=== PATIENT | female | born 1945 | race Caucasian/White ===

== ENCOUNTER → 2017-10-27 02:33 | Outpatient (CLI) | payer MEDICARE, MEDICAID, SELFPAY ==
--- NOTE | 2017-10-27 13:10 | DI.REPORT_ITS ---
SYMPTOMS/DIAGNOSIS: SHORTNESS OF BREATH, R06.02 CHEST X-RAY, AP AND LATERAL: Comparisons are 03/29/17 and 09/10/17. The heart size and pulmonary vasculature are within normal limits. No focal consolidating infiltrates, effusions or pneumothoraces are identified. The bones appear intact. There are again seen chronic reticulonodular infiltrates predominantly involving the right upper lobe. IMPRESSION: No acute pulmonary process.
== END ==
PROVIDERS: PCP Emergency Medicine; Visit Provider Emergency Medicine
DX: R06.02 Shortness of breath (principal)
CPT/HCPCS: 71046

== ENCOUNTER 2017-10-30 02:52 | Outpatient (CLI) | payer MEDICARE, MEDICAID, SELFPAY ==
--- NOTE | 2017-10-30 13:30 | PFT_ITS ---
INTERPRETATION SPIROMETRY: Spirometry shows moderately severe obstructive airways disease with significant bronchodilator response. LUNG VOLUMES: Lung volumes show moderate restriction. DIFFUSION CAPACITY: Mildly reduced which is normal when corrected to alveolar volume. AIRWAY RESISTANCE: Elevated. IMPRESSION: Combination of moderately severe obstructive airways disease with significant bronchodilator response and moderately severe restriction. Clinical correlation recommended. When this study was compared to previous one from 07/31/06, the patient has a total of 420 cc. decline in FVC, FEV-1 has declined by 290 cc. The restrictive pattern seen on this study may be related to respiratory neuromuscular weakness, as such, proceeding with MVV, MIP and MEP maneuvers may prove to be useful in evaluation for that. HAND SIGNED COPY OF THIS NOTE IS SCANNED INTO THE EMR
[2017-10-30] MEDS: Albuterol HFA 18 GM 200 PUFF INH IH (14:19)
[2017-10-30] MEDS: Inhaler, Assist Device 1 EACH MC (14:19)
== END 2017-10-30 02:53 ==
PROVIDERS: PCP Emergency Medicine; Visit Provider Emergency Medicine
DX: R06.02 Shortness of breath (principal); J98.8 Other specified respiratory disorders
CPT/HCPCS: 94060; 94150; 94726; 94729

== ENCOUNTER 2017-11-13 09:09 | Outpatient (REF) | payer MEDICARE, MEDICAID, SELFPAY ==
[2017-11-13 11:05] LABS: Bilirubin Negative (Negative); Blood Trace-lysed (Negative); Clarity Cloudy; Glucose Negative (Negative); Ketones Negative (Negative); Leukocyte Esterase Moderate (Negative); Nitrite Positive (Negative); Urobilinogen 0.2 EU/dL (Up TO 0.2); pH >= 9.0 (5-8)
[2017-11-13 11:18] LABS: Bacteria Packed HPF (Negative)
[2017-11-13 11:19] LABS: C & S Indicated? Yes; Crystals Moderate Triple Phos HPF (Negative)
== END 2017-11-13 09:29 ==
LOC: LBN 09:09
PROVIDERS: PCP Emergency Medicine; Visit Provider Emergency Medicine
DX: N39.0 Urinary tract infection, site not specified (principal); T83.511A Infection and inflammatory reaction due to indwelling urethral catheter, initial encounter
CPT/HCPCS: 81003; 81015; 87086

== ENCOUNTER 2017-11-27 13:38 | Outpatient (REF) | payer MEDICARE, MEDICAID, SELFPAY ==
[2017-11-27 15:31] LABS: Bilirubin Negative (Negative); Blood Moderate (Negative); Clarity Sl Cloudy; Glucose Negative (Negative); Ketones Negative (Negative); Leukocyte Esterase Moderate (Negative); Nitrite Positive (Negative); Urobilinogen 0.2 EU/dL (Up TO 0.2)
[2017-11-27 15:42] LABS: Bacteria Moderate HPF (Negative); Epithelial Cells Rare HPF (Negative)
[2017-11-27 15:43] LABS: C & S Indicated? Yes; Crystals Moderate Amorphous HPF (Negative); Mucus Trace (Negative)
== END 2017-11-27 13:58 ==
LOC: NCHCN 13:38
PROVIDERS: PCP Emergency Medicine; Visit Provider Emergency Medicine
DX: N39.0 Urinary tract infection, site not specified (principal)
CPT/HCPCS: 87077; 81003; 81015; 87086; 87186

== ENCOUNTER 2017-12-14 12:20 | Outpatient (REF) | payer MEDICARE, MEDICAID, SELFPAY ==
[2017-12-14 12:39] LABS: Bilirubin Negative (Negative); Blood Large (Negative); Clarity Sl Cloudy; Glucose Negative (Negative); Ketones Negative (Negative); Leukocyte Esterase Small (Negative); Nitrite Positive (Negative); Specific Gravity 1.015 (1.005-1.025); Urobilinogen 0.2 EU/dL (Up TO 0.2)
[2017-12-14 12:57] LABS: C & S Indicated? C&S Done As Ordered
[2017-12-14 13:06] LABS: Abs Immature Grans 0.04 k/cumm (0.0-0.09); Absolute Basophil Count 0.04 k/cumm (0.0-0.2); Absolute Eosinophil Count 0.36 k/cumm (0.0-0.7); Absolute Lymphocyte Count 0.74 k/cumm (1.2-3.4); Absolute Monocyte Count 0.65 k/cumm (0.11-0.7); Absolute Neutrophil Count 6.67 k/cumm (1.2-6.7); Basophils % 0.5; Eosinophils % 4.2; HCT 37.6 % (36.0-46.0); HGB 11.6 g/dL (12.0-15.5); Immature Grans % 0.5; Lymphocytes % 8.7; Mean Corp. HGB Concentration 30.9 g/dL (32.0-36.0); Mean Corpuscular Hemoglobin 27.8 pg (27.0-33.0); Monocytes % 7.6; Neutrophils % 78.5; RBC 4.18 m/cumm (4.00-5.20); RBC Distribution Width 15.7 % (11.7-14.6)
[2017-12-14 13:22] LABS: Diff Comment Diff Reviewed; Hypochromasia 1+; Polychromasia Present
[2017-12-14 13:25] LABS: Poikilocytes 1+
[2017-12-14 13:37] LABS: Platelet Count 2 x1000/uL (130-400)
== END 2017-12-14 12:40 ==
LOC: LBN 12:20
PROVIDERS: Family Medicine; PCP Emergency Medicine; Visit Provider Emergency Medicine
DX: N39.0 Urinary tract infection, site not specified (principal)
CPT/HCPCS: 81003; 81015; 85025; 87086

== ENCOUNTER 2017-12-14 14:26 | Emergency (ER) | payer MEDICARE, MEDICAID, SELFPAY ==
[2017-12-14 14:32] VITALS: BP 134/59; PULSE 91; RESP 18; TEMP 35.9; O2SAT 98
--- NOTE | 2017-12-14 14:44 | DI.RAD_ITS ---
SYMPTOMS/DIAGNOSIS: HEMATURIA, LOW PLATELETS AP AND LATERAL CHEST: The heart is not enlarged. The lungs are grossly clear and well expanded. No pleural effusions seen. CONCLUSION: No evidence of acute disease.
--- NOTE | 2017-12-14 14:50 | W.ED.GENAD ---
Discharge Plan Disposition Patient Disposition: [facility] Condition: Stable Discharge Details Chief Complaint: GenMedical Clinical Impression: Thrombocytopenia, Hematuria Primary Care Provider: Hunter Santo ED Provider: Cady Moon Home Meds and New Rx's Prescriptions: No Action bisacodyl [Dulcolax (bisacodyl)] 10 MG suppository 10 mg RC PRN RF: 0 acetaminophen 325 MG tablet 325 mg PO Q4H PRN RF: 0 diphenoxylate-atropine [Lomotil] 1 EACH tablet 1 ea PO PRNRF: 0 aspirin 81 MG tablet,chewable 81 mg PO DAILY Qty: 90 RF: 4 loperamide [Imodium A-D] 2 MG capsule 2 mg PO qid prn Qty: 180 RF: 3 Lactobacillus acidophilus 1 EACH capsule 1 ea PO TID Qty: 270 RF: 3 apixaban [Eliquis] 2.5 MG tablet 2.5 mg PO BID Qty: 180 RF: 3 polyethylene glycol 3350 [Miralax] 17 GM powder in packet 17 gm PO DAILY RF: 0 budesonide-formoterol [Symbicort] 10.2 GM HFA aerosol inhaler 2 puff Inhalation BID Qty: 2 RF: 6 lovastatin 20 MG tablet 20 mg PO DAILY Qty: 90 RF: 3 fluconazole 150 mg tablet 150 mg PO Q3D Qty: 2 RF: 0 cephalexin 500 mg capsule 500 mg PO QID Qty: 20 RF: 0 Discharge Data Discharge Date/Time-TO BE ENTERED AT DEPARTURE: 12/14/17 19:25 Medical Decision Making 72-year-old female with 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 CBC done today per on-call PCP noted a platelet count of 2. Patient denies any acute complaints. Vitals within normal limits. She appears nontoxic. There is petechiae noted to the face, right arm and bilateral lower extremities. Brownish red color noted to urine. Labs repeated and platelet count of 3. Will call [facility] for recommendations. Urinalysis notes greater than 50 RBCs, 10-20 WBCs, positive nitrite. CBC notes a white blood cell count of 8.6, hemoglobin 12.7, hematocrit 40.5. Chest x-ray negative. EKG notes a rate of 92, sinus, no acute ST elevation or depression, QTc 425, QRS 94. 1520 -- D/w Dr. Grigsby Heme Onc at [facility] - concern would be ITP or TTP. Recommends fibrinogen, d-dimer, reticulocyte count, haptoglobin. Would like to be called back with liver/renal function to assess for TTP. Would like a peripheral smear for schistocytes. Recommends holding anticoagulation. Recommends dexamethasone 40mg daily x 4 days and IVIG 1g/kg x 2 days. D/w lab and they will review smear and pathology will confirm tomorrow. 1645 -- No beds available here. Labs reviewed and renal and liver function essentially unremarkable. Alk phos 279. D-dimer elevated at greater than 7500. D/w Dr. Grigsby and accepts pt for transfer to [facility] - accepting physician Dr. Rios. Will give dose of dexamethasone here. Will hold on IVIG and they will start this at [facility]. We also discussed the possibility of Keflex contributing to thrombocytopenia and she recommend stopping this. Right toe with mild cellulitis. They will consider starting clindamycin if needed. Family agreeable with transfer to [facility]. HPI General Mode of arrival: EMS. Date/Time Provider Initiated Documentation: 12/14/17 14:33. Limitations to Documentation: no limitations. Information obtained by: patient. 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 Family noticed hematuria last night and her leg bag as she has a history of indwelling genao. Today home health evaluated patient and noted petechial rash and call the PCP on-call and she checked a CBC and noted her platelets to be 2 and was sent to the ED for evaluation. Patient denies any fever, nausea, vomiting, chest pain, shortness of breath, abdominal pain. She states she otherwise has been eating and drinking well. Patient is taking aspirin, Eliquis for anticoagulation prophylaxis due to her immobility. She had been taking Lovenox but was switched to Eliquis in June 2017. She recently started Keflex for a toe infection. Past medical history: Hyperlipidemia, paraplegia due to transverse myelitis of unknown cause December 2016 Surgical history: Tubal ligation Social history: Denies tobacco, alcohol, drugs Medications: Eliquis, aspirin, Symbicort, Keflex, Lomotil Allergies: P.o. contrast PCP: Dr. Santo Related Data Home Medications Medication Instructions Recorded Confirmed bisacodyl [Dulcolax (bisacodyl)] 10 mg RC PRN supp.rect 02/04/17 12/14/17 acetaminophen 325 mg PO Q4H PRN 02/07/17 12/14/17 diphenoxylate-atropine [Lomotil] 1 ea PO PRN tab-cap 02/07/17 Lactobacillus acidophilus 1 ea PO TID #270 cap 06/04/17 12/14/17 aspirin 81 mg PO DAILY #90 tab-cap 06/04/17 12/14/17 loperamide [Imodium A-D] 2 mg PO qid prn #180 tab-cap 06/04/17 12/14/17 apixaban [Eliquis] 2.5 mg PO BID #180 tab 07/23/17 12/14/17 budesonide-formoterol [Symbicort 2 puff INHALATION BID #2 inhaler 10/24/17 12/14/17 160/4.5 Mcg Inhaler] lovastatin 20 mg PO DAILY #90 tab-cap 10/24/17 12/14/17 polyethylene glycol 3350 [Miralax] 17 gm PO DAILY gm 10/24/17 12/14/17 fluconazole 150 mg tablet 150 mg PO Q3D #2 tab 12/08/17 12/14/17 cephalexin 500 mg capsule 500 mg PO QID #20 cap 12/11/17 12/14/17 Previous Rx's Medication Instructions Recorded Lactobacillus acidophilus 1 ea PO TID #270 cap 06/04/17 aspirin 81 mg PO DAILY #90 tab-cap 06/04/17 loperamide [Imodium A-D] 2 mg PO qid prn #180 tab-cap 06/04/17 apixaban [Eliquis] 2.5 mg PO BID #180 tab 07/23/17 budesonide-formoterol [Symbicort 2 puff INHALATION BID #2 inhaler 10/24/17 160/4.5 Mcg Inhaler] lovastatin 20 mg PO DAILY #90 tab-cap 10/24/17 fluconazole 150 mg tablet 150 mg PO Q3D #2 tab 12/08/17 cephalexin 500 mg capsule 500 mg PO QID #20 cap 12/11/17 Allergies Allergy/AdvReac Type Severity Reaction Status Date / Time flu vaccine Allergy Mild rash Uncoded 12/14/17 14:40 iv contrast AdvReac Mild possible Uncoded 12/14/17 14:40 hives General Stated Complaint: GenMedical SERGO: 3 Review of Systems Review of Systems All systems reviewed & are unremarkable except as noted in HPI and below Constitutional Denies chills, Denies excessive sweating, Denies fatigue, Denies fever(s), Denies weakness and Denies weight loss Eyes Reports system reviewed and no additional complaints, except as docu and Denies blurry vision ENT Denies vertigo, Denies dizziness, Denies otalgia, Denies nasal congestion, Denies sore throat and Denies throat swelling Cardiovascular Denies chest pain, Denies syncope, Denies rapid heart rate and Denies dyspnea Respiratory Denies dyspnea Gastrointestinal Denies abdominal pain, Denies diarrhea and Denies vomiting Genitourinary Reports hematuria, Denies dysuria and Denies flank pain Musculoskeletal Denies back pain and Denies joint swelling Integumentary/Breasts Denies lesions and Reports rash Neurologic Denies behavioral changes, Denies confusion, Denies vertigo, Denies dizziness, Denies syncope and Denies weakness Psychiatric Denies behavioral changes, Denies confusion and Denies depression Endocrine Denies excessive sweating and Denies fatigue Hematologic/Lymphatic Denies easy bruising and Denies lymphadenopathy Allergic/Immunologic Denies throat swelling [facility] Medical History Familial hyperlipidemia Hypertension Influenza A virus present MRSA (methicillin resistant staph aureus) culture positive Pressure ulcer of coccygeal region, stage 2 Pressure ulcer of left leg, stage 2 Pressure ulcer of right leg, stage 2 Sensorineural hearing loss (SNHL) of both ears Transverse myelopathy syndrome Social History Smoking/Tobacco Use Status: Never Surgical History Debridement Ulcer Exam Const General: cooperative and healthy appearing Orientation: alert and awake HENTX Head: normal to inspection Ears: hearing grossly normal bilaterally and external ears normal General nose exam: external nose normal Face and sinus: normal facial exam Mouth: oral mucosae normal Eyes General: appearance normal, both eyes and all related structures Eyelids: eyelids normal EOM: EOM intact bilaterally Neck Neck: normal visual inspection Lymphatic: no lymphadenopathy noted Chest Chest: normal inspection of the chest Resp Effort & Inspection: normal respiratory effort and able to speak in complete sentences Auscultation: clear to auscultation bilaterally Cardio Rate: regular rate Rhythm: regular rhythm GI Inspection: normal to inspection Palpation: soft, not firm, no guarding, no hepatosplenomegaly, no masses and nontender Auscultation: normal bowel sounds Skin General skin exam: petechiae (Noted to face, right upper extremity, and worse in bilateral lower extremities) Neuro General: alert and awake Cognition: normal cognition Speech: speech normal Gait: normal gait Motor: muscle tone normal throughout Sensory Exam: no sensory deficits noted Extrem General: other (Paraplegia bilateral lower extremities. No edema noted. Bilateral DP/PT pulses intact) Psych Appearance: grossly normal Mental Status: mental status grossly normal Speech and Movement: speech and movement normal Affect: normal affect Thought Process: normal Course Vital Signs Temperature 96.6 F L 12/14/17 14:32 Pulse 91 H 12/14/17 14:32 Respiratory Rate 18 12/14/17 14:32 Blood Pressure 134/59 L 12/14/17 14:32 Pulse Oximetry 98 12/14/17 14:32 Temperature 96.6 F L 12/14/17 14:32 Temperature Source Temporal Artery Scan 12/14/17 14:32 Pulse 91 H 12/14/17 14:32 Respiratory Rate 18 12/14/17 14:32 Respiratory Effort Non-Labored 12/14/17 14:36 Respiratory Depth Normal 12/14/17 14:36 Respiratory Pattern Normal 12/14/17 14:36 Blood Pressure 134/59 L 12/14/17 14:32 Blood Pressure Position Sitting 12/14/17 14:32 Pulse Oximetry 98 12/14/17 14:32 Oxygen Delivery Method Room Air 12/14/17 14:32 Oxygen Flow Rate 0 12/14/17 14:32 Pain Level 0 12/14/17 14:32
[2017-12-14 15:05] LABS: Abs Immature Grans 0.04 k/cumm (0.0-0.09); Absolute Basophil Count 0.02 k/cumm (0.0-0.2); Absolute Eosinophil Count 0.32 k/cumm (0.0-0.7); Absolute Lymphocyte Count 0.76 k/cumm (1.2-3.4); Absolute Monocyte Count 0.62 k/cumm (0.11-0.7); Absolute Neutrophil Count 6.84 k/cumm (1.2-6.7); Basophils % 0.2; Eosinophils % 3.7; HCT 40.5 % (36.0-46.0); HGB 12.7 g/dL (12.0-15.5); Immature Grans % 0.5; Lymphocytes % 8.8; Mean Corp. HGB Concentration 31.4 g/dL (32.0-36.0); Mean Corpuscular Hemoglobin 27.9 pg (27.0-33.0); Monocytes % 7.2; Neutrophils % 79.6; RBC 4.55 m/cumm (4.00-5.20); RBC Distribution Width 15.8 % (11.7-14.6)
[2017-12-14 15:20] LABS: Diff Comment Diff Reviewed; Hypochromasia 1+; Platelet Count 3 x1000/uL (130-400); Poikilocytes 1+; Polychromasia Present
[2017-12-14 15:23] LABS: INR 1.1 (1.0-3.5); PTT Activated 24.4 sec (21.0-31.4); Prothrombin Time 10.3 sec (9.3-10.8)
[2017-12-14 15:23] LABS: Bilirubin Negative (Negative); Blood Large (Negative); Clarity Clear; Glucose Negative (Negative); Ketones Negative (Negative); Leukocyte Esterase Small (Negative); Nitrite Positive (Negative); Urobilinogen 0.2 EU/dL (Up TO 0.2); pH 6.5 (5-8)
[2017-12-14 15:25] LABS: ALT 33 U/L (12-78); AST 35 U/L (15-37); Albumin 2.3 g/dL (3.4-5.0); Alkaline Phosphatase 279 U/L (46-116); Anion Gap 6.2 mmol/L (3-11); BUN 16 mg/dL (7-18); Bilirubin, Total 0.2 mg/dL (0.2-1.0); CO2 28.8 mmol/L (21.0-32.0); CREATININE 0.41 mg/dL (0.55-1.02); Calcium 8.9 mg/dL (8.5-10.1); Chloride 104 mmol/L (98-107); Glucose 107 mg/dL (70-100); Lipase 195 U/L (73-393); Potassium 3.8 mmol/L (3.5-5.1); Sodium 139 mmol/L (136-145); Total Protein 7.4 g/dL (6.4-8.2)
[2017-12-14 15:31] LABS: Bilirubin, Direct < 0.05 mg/dL (0.00-0.20); Troponin I < 0.02 ng/mL (0.00-0.06)
[2017-12-14 15:35] LABS: Epithelial Cells Negative HPF (Negative); RBC >50 (0-2)
[2017-12-14 15:36] LABS: Bacteria Moderate HPF (Negative); C & S Indicated? Yes; Casts Negative LPF (Negative); Crystals Negative HPF (Negative); Mucus Negative (Negative)
[2017-12-14 15:46] LABS: Reticulocyte 2.2 % (0.5-2.4)
--- NOTE | 2017-12-14 15:46 | DI.VRAD_ITS ---
EXAM: XR Chest, 2 Views CLINICAL HISTORY: 72 years old, female; Signs and symptoms; Other: Hematuria, low platelets; Additional info: R/O acute disease TECHNIQUE: Frontal and lateral views of the chest. COMPARISON: CR CHEST 2 VIEWS PA,LAT 10/27/2017 1:15 PM FINDINGS: Minimal interstitial lung scarring. No focal consolidation. Mild cardiomegaly. Costophrenic angles are sharp. Bony structures unremarkable for age. IMPRESSION: Minimal lung scarring and cardiomegaly. No evidence of acute cardiopulmonary disease. Dictated and Authenticated by: Marcel Dent MD. Ordering:JUAN SARABIA MD
[2017-12-14 16:22] LABS: D-Dimer > 7500 ng/mlFEU (<500)
[2017-12-14] MEDS: Dexamethasone 10 MG/ML VIAL 40 MG IVP (17:05)
--- NOTE | 2017-12-14 19:18 | NUR.NOTE ---
Nursing Note: Attempt verbal report at 1907, receiving facility states they will call back to receive report
[2017-12-14 19:50] VITALS: BP 133/80; PULSE 88; RESP 18; TEMP 36.8; O2SAT 99
[2017-12-16 11:31] LABS: Haptoglobin 238 mg/dL (32-197)
== END 2017-12-14 19:25 | disposition short-term general hospital (02) ==
PROVIDERS: Emergency Provider Physician Assistant; PCP Emergency Medicine
DX: D69.6 Thrombocytopenia, unspecified (principal); R31.9 Hematuria, unspecified; Z96.0 Presence of urogenital implants; R79.1 Abnormal coagulation profile; R23.3 Spontaneous ecchymoses; Z79.01 Long term (current) use of anticoagulants; G82.20 Paraplegia, unspecified; I10 Essential (primary) hypertension; G37.3 Acute transverse myelitis in demyelinating disease of central nervous system
CPT/HCPCS: 36415; 80053; 80076; 83690; 93005; 96374; 99285; 71046; 81003; 81015; 83010; 83735; 84484; 85025; 85045; 85379; 85610; 85730; 87086; 93010; J1100